=== PATIENT | female | born 1945 | race Caucasian/White ===

== ENCOUNTER → 2017-01-01 | Outpatient (CLI) | payer OTHER, BC | LOC: BHCLAF 14:30 | PROVIDERS: ATTEND Internal Medicine Cardiovascular Disease | DX: I10 Essential (primary) hypertension (principal) | CPT/HCPCS: 93005-PO ==

== ENCOUNTER 2017-06-09 10:14 | Emergency (ER) | payer OTHER, BC ==
[2017-06-09 10:27] VITALS: RESP 16; TEMP 97.9
--- NOTE | 2017-06-09 10:56 | CPEKG ---
Heart Rate: 51 RR Interval: 1176 P-R Interval: 168 QRSD Interval: 80 QT Interval: 444 QTC Interval: 409 P [place]: -19 QRS [place]: 4 T Wave [place]: 18 EKG Severity - OTHERWISE NORMAL ECG - EKG Impression: SINUS RHYTHM EKG Impression: MINIMAL ST DEPRESSION, ANTEROLATERAL LEADS Electronically Signed By: Abran Broussard 09-Jun-2017 11:48:38
[2017-06-09 12:36] LABS: PLATELET COUNT 244 10^3/uL (150-400)
--- NOTE | 2017-06-09 12:47 | EDPHY ---
H & P Time Seen by Provider: 06/09/17 11:18 HPI/ROS: CHIEF COMPLAINT: More agitated today HISTORY OF PRESENT ILLNESS: Patient has history of dementia, history is both from her and from her . She was more agitated and shaky today and her blood pressure was high at home she was brought to the ER. Initial blood pressure was 209/92 but when I am in the room it is 141/74. The patient is a little bit of halting speech but says she feels pretty much normal right now. The says she is better but still is a little more shaky than usual. No seizure activity. No headache chest pain or shortness of breath. No changes in her medications in the last week. REVIEW OF SYSTEMS: Eye: no change in vision ENT: no sore throat Cardiac: no chest pain or syncope Pulmonary: no cough or SOB Abdomen: no vomiting, diarrhea, abdominal pain, decreased oral intake vertebral months Musculoskeletal: no back pain Skin: no rash Neuro: no headache Constitutional: no fever : no urinary symptoms A comprehensive 10 point review of systems is otherwise negative aside from elements mentioned in the history of present illness. PAST MEDICAL HISTORY: Hypertension, dementia, hypothyroid, history of anemia Social history: , here with . No alcohol. General Appearance: Alert and conversant, cooperative. Eyes: No scleral icterus. ENT, Mouth: Normal mucous membranes. No tongue laceration or abrasion. Respiratory: Normal respiratory effort, breath sounds equal, lungs are clear to auscultation. Cardiovascular: Regular rate and rhythm. Gastrointestinal: Abdomen is soft and non tender. Neurological: Alert, face symmetric, normal motor and sensory in extremities. Good tooth grinder strength and can lift each leg off the bed t separately. Appropriately answers questions and responds to commands although memory is a little bit impaired which is normal for her. Not tremulous. Skin: Warm and dry, no rashes. Musculoskeletal: No peripheral edema. Normal range of motion of the neck. Psychiatric: Not hallucinating. Does not have pressured speech or verbal aggressiveness. Lying in the bed when I evaluate her. Emergency Department course/MDM: EKG, labs, urinalysis. The patient does not appear to have acute delirium. 1308: Labs reviewed show no UTI and normal electrolytes. Not anemic. Blood pressures has decreased spontaneously. Patient's is concerned that she is pacing around the room, and seems more agitated than usual and would like a medication to help control her behavior. 1351: discussed with Jessie Parrishon, she requests that I send the patient and her to office directly from the ED. I discussed with patient and her that ongoing medication would be better discussed with her primary care provider and they are in agreement and will go there now. Smoking Status: Never smoked Constitutional: Initial Vital Signs Temperature (C) 36.6 C 06/09/17 10:22 Heart Rate 56 L 06/09/17 10:22 Respiratory Rate 16 06/09/17 10:22 Blood Pressure 209/92 H 06/09/17 10:22 O2 Sat (%) 98 06/09/17 10:22 O2 Delivery Mode Room Air Allergies/Adverse Reactions: amoxicillin trihydrate [From Augmentin] Allergy (Verified 06/09/17 10:22) Penicillins Allergy (Verified 06/09/17 10:22) potassium clavulanate [From Augmentin] Allergy (Verified 06/09/17 10:22) Sulfa (Sulfonamide Antibiotics) Allergy (Verified 06/09/17 10:22) Home Medications: Medication Instructions Recorded Atorvastatin Calcium 12/07/13 Levothyroxine 12/07/13 Lisinopril 12/07/13 Medical Decision Making - Diagnostics EKG Interpretation: 12-lead EKG interpreted by me; official reading is in trace master. My interpretation is sinus rhythm, nonspecific lateral ST T-wave flattening otherwise normal. Rate 51. Differential Diagnosis: Differential considered including but not limited to hypoglycemia, other metabolic abnormality, stroke or seizure, hypertensive emergency, ACS, drug or alcohol, UTI. - Data Points Laboratory Results: Laboratory Results 06/09/17 12:26 06/09/17 12:26 06/09/17 06/09/17 06/09/17 12:35 12:26 12:26 WBC 6.37 10^3/uL 10^3/uL (3.80-9.50) RBC 4.30 10^6/uL 10^6/uL (4.18-5.33) Hgb 13.6 g/dL g/dL (12.6-16.3) POC Hgb Hct 41.1 % % (38.0-47.0) POC Hct MCV 95.6 fL fL (81.5-99.8) MCH 31.6 pg pg (27.9-34.1) MCHC 33.1 g/dL g/dL (32.4-36.7) RDW 13.4 % % (11.5-15.2) Plt Count 244 10^3/uL 10^3/uL (150-400) MPV 9.8 fL fL (8.7-11.7) Neut % (Auto) 74.6 % H % (39.3-74.2) Lymph % (Auto) 18.1 % % (15.0-45.0) [place] % (Auto) 6.0 % % (4.5-13.0) Eos % (Auto) 0.8 % % (0.6-7.6) Baso % (Auto) 0.3 % % (0.3-1.7) Nucleat RBC Rel Count 0.0 % % (0.0-0.2) Absolute Neuts (auto) 4.76 10^3/uL 10^3/uL (1.70-6.50) Absolute Lymphs (auto) 1.15 10^3/uL 10^3/uL (1.00-3.00) Absolute Monos (auto) 0.38 10^3/uL 10^3/uL (0.30-0.80) Absolute Eos (auto) 0.05 10^3/uL 10^3/uL (0.03-0.40) Absolute Basos (auto) 0.02 10^3/uL 10^3/uL (0.02-0.10) Absolute Nucleated RBC 0.00 10^3/uL 10^3/uL (0-0.01) Immature Gran % 0.2 % % (0.0-1.1) Immature Gran # 0.01 10^3/uL 10^3/uL (0.00-0.10) POC Sodium Sodium 145 mEq/L H mEq/L (134-144) POC Potassium Potassium 3.6 mEq/L mEq/L (3.5-5.2) POC Chloride Chloride 106 mEq/L mEq/L (97-110) Carbon Dioxide 25 mEq/l mEq/l (22-31) Anion Gap 14 mEq/L mEq/L (8-16) POC BUN BUN 18 mg/dL mg/dL (7-23) Creatinine 0.9 mg/dL mg/dL (0.6-1.0) POC Creatinine Estimated GFR > 60 Glucose 99 mg/dL mg/dL (70-100) POC Glucose Calcium 10.1 mg/dL mg/dL (8.5-10.4) Troponin I < 0.012 ng/mL ng/mL (0.000-0.034) TSH 3.190 uIU/mL uIU/mL (0.465-4.680) Urine Color YELLOW Urine Appearance CLEAR Urine pH 5.0 (5.0-7.5) Ur Specific [place] 1.021 (1.002-1.030) Urine Protein NEGATIVE (NEGATIVE) Urine Ketones NEGATIVE (NEGATIVE) Urine Blood NEGATIVE (NEGATIVE) Urine Nitrate NEGATIVE (NEGATIVE) Urine Bilirubin NEGATIVE (NEGATIVE) Urine Urobilinogen 2.0 EU H EU (0.2-1.0) Ur Leukocyte Esterase TRACE H (NEGATIVE) Urine RBC 1-3 /hpf /hpf (0-3) Urine WBC 1-3 /hpf /hpf (0-3) Ur Epithelial Cells TRACE /lpf /lpf (NONE-1+) Hyaline Casts 1-5 /lpf /lpf (0-1) Urine Mucus 1+ /lpf /lpf (NONE-1+) Urine Glucose NEGATIVE (NEGATIVE) 06/09/17 12:22 WBC RBC Hgb POC Hgb 14.3 gm/dL gm/dL (12.6-16.3) Hct POC Hct 42 % % (38-47) MCV MCH MCHC RDW Plt Count MPV Neut % (Auto) Lymph % (Auto) [place] % (Auto) Eos % (Auto) Baso % (Auto) Nucleat RBC Rel Count Absolute Neuts (auto) Absolute Lymphs (auto) Absolute Monos (auto) Absolute Eos (auto) Absolute Basos (auto) Absolute Nucleated RBC Immature Gran % Immature Gran # POC Sodium 144 mEq/L mEq/L (134-144) Sodium POC Potassium 3.3 mEq/L mEq/L (3.3-5.0) Potassium POC Chloride 104 mEq/L mEq/L (97-110) Chloride Carbon Dioxide Anion Gap POC BUN 17 mg/dL mg/dL (7-23) BUN Creatinine POC Creatinine 1.0 mg/dL mg/dL (0.6-1.0) Estimated GFR Glucose POC Glucose 99 mg/dL mg/dL (70-100) Calcium Troponin I TSH Urine Color Urine Appearance Urine pH Ur Specific [place] Urine Protein Urine Ketones Urine Blood Urine Nitrate Urine Bilirubin Urine Urobilinogen Ur Leukocyte Esterase Urine RBC Urine WBC Ur Epithelial Cells Hyaline Casts Urine Mucus Urine Glucose Point of Care Test Results: 06/09/17 12:22 POC Sodium 144 POC Potassium 3.3 POC Chloride 104 POC BUN 17 POC Creatinine 1.0 POC Glucose 99 Departure - Departure Disposition: Home, Routine, Self-Care Clinical Impression: Hypertension Qualifiers: Hypertension type: unspecified Qualified Code(s): I10 - Essential (primary) hypertension Condition: Good Instructions: Hypertension (ED) Additional Instructions: go see Criss iJmenez in the office at [facility] now. Referrals: Criss Jimenez PA [Primary Care Provider] - As per Instructions
[2017-06-09 13:56] VITALS: BP 113/65; PULSE 55; O2SAT 98
== END 2017-06-09 13:55 | disposition home or self-care (01) ==
DX: I10 Essential (primary) hypertension (principal)
CPT/HCPCS: 82947-QW